=== PATIENT | female | born 1945 | race Caucasian/White ===

== ENCOUNTER → 2017-12-14 | Outpatient (CLI) | payer MEDICARE, OTHER ==
[~2017-12-14] MED LIST: ALEVE220 M1 PO; AMILORIDE HCL-1 EACH PO; CALCIUM 500+D1 EACH PO; ESTRADIOL1 MG PO; FISH OIL 1,0001 EAC2 PO; FUROSEMIDE40 MG PO; MELATONIN3 MG PO; MELOXICAM15 MG PO; MULTIVITAMINS1 EAC7 PO; POTASSIUM CHLO10 ME1 PO; SPIRIVA18 MCG INH; SYMBICORT 16010.2 GM IH; VENTOLIN HFA18 GM IH; XOPENEX HFA15 GM IH
--- NOTE | 2017-12-15 07:52 | Diagnostic Imaging Report ---
TECHNIQUE: Magnetic resonance imaging of the sacrum was performed WITHOUT injected contrast using standard departmental protocols. HISTORY: Low back pain COMPARISON: None. FINDINGS: Bone and bone marrow: No focal or infiltrative bone marrow replacing abnormality. No fracture or osteonecrosis. Sacroiliac joints: No significant arthropathy. Lumbar spine and sacral nerve roots: Lower lumbar disc herniations at L4-L5 and L5-S1 with endplate change at L5-S1. No mass effect on the exited nerve roots or proximal sciatic nerve. Soft tissues: Atrophy of the paraspinal musculature. IMPRESSION: Lower lumbar spondylosis. Refer to lumbar spine MRI report. Otherwise, unremarkable sacral MRI. Signed by: Dr. Mal Hall M.D. on 12/15/2017 7:48 AM
--- NOTE | 2017-12-16 08:20 | Diagnostic Imaging Report ---
Examination: MRI SPINE LUMBAR WITHOUT CONTRAST History: Severe low back pain radiating to the back of the bilateral lower extremities with associated numbness and weakness. Comparison studies: None Technique: Sagittal, coronal and axial T2 , sagittal T1 and STIR; axial spin density oblique. Findings: Number of lumbar vertebral bodies: Five. Alignment: Normal lordosis. Mild rightward curvature centered at L2-L3. Soft tissues: No T2 hyperintense inflammatory changes. Posterior paraspinal soft tissues and muscles: No abnormality. Lower thoracic cord: Normal in signal and morphology. The tip of the conus is at L1 . Cauda equina: No masses. No arachnoiditis. Vertebrae: No fractures, infection or neoplasm. Degenerative changes: L1-L2: Diffuse disc osteophyte complex and mild bilateral facet arthropathy result in mild bilateral neural foraminal narrowing. No canal stenosis. L2-L3: Degenerative fusion with diffuse disc osteophyte complex and mild bilateral facet arthropathy result in mild right and moderate left neural foraminal narrowing. No canal stenosis. Prior right laminectomy of L3. L3-L4: Diffuse disc osteophyte complex and mild bilateral facet arthropathy result in mild right and severe left neural foraminal narrowing. No canal stenosis. Prior right laminectomy of L4. L4-L5: Degenerative grade I anterolisthesis without pars defect. Diffuse disc bulge, severe bilateral facet arthropathy result in severe bilateral neural foraminal narrowing. Prior decompressive right laminectomy at L4. L5-S1: Bilateral decompressive laminectomies. Diffuse disc bulge and moderate bilateral facet arthropathy result in severe bilateral neural foraminal narrowing. Bilateral facet synovitis with moderate sized bilateral effusions. IMPRESSION: 1. Decompressive right laminectomies at L3 and L4 and bilateral laminectomies at L5-S1. 2. Degenerative changes multiple L2-L5 S1 with severe bilateral neural foraminal narrowing at L4-L5 and L5-S1. Degenerative grade I anterolisthesis without pars defect at L4-L5. 3. Bilateral facet synovitis at L5-S1. Signed by: Dr. Hayley Pineda M.D. on 12/16/2017 8:16 AM
== END | disposition home or self-care (01) ==
LOC: MRI 15:28
DX: M15.0 Primary generalized (osteo)arthritis (principal); M47.817 Spondylosis without myelopathy or radiculopathy, lumbosacral region; M47.816 Spondylosis without myelopathy or radiculopathy, lumbar region; M43.16 Spondylolisthesis, lumbar region
CPT/HCPCS: 72148; 72195

== ENCOUNTER 2018-02-08 12:49 | Inpatient (IN) | payer MEDICARE, OTHER ==
[~2018-02-08] VITALS: Ht 157.5 cm; Wt 84.8 kg
--- OUTSIDE RECORDS SUMMARY | 2018-02-08 17:06 | XMS REPORT ---
Author Author [facility] Address Unknown Phone Unavailable Care Team Providers Care Clinical Counselor Name Role Phone VIC EAST Unavailable Unavailable Problems This patient has no known problems. Allergies, Adverse Reactions, Alerts This patient has no known allergies or adverse reactions. Medications This patient has no known medications. Results Test Description Test Time Test Comments Text Results Atomic Results Result Comments MRI SACRUM WO [place] [address] Patient Name: VEENA LUEVANO MR #: [id number] : 1945 Age/Sex: 72/F Req # : [id number] Adm Physician: Ordered by: VIC EAST MD Report #: [id number] Location: MRI Room/Bed: Procedure: [id number] MRI/MRI SACRUM WO Exam Date: Exam Time: REPORT STATUS: Signed TECHNIQUE: Magnetic resonance imaging of the sacrum was performed WITHOUT injected contrast using standard departmental protocols. HISTORY: Low back pain COMPARISON: None. FINDINGS: Bone and bone marrow: No focal or infiltrative bone marrow replacing abnormality. No fracture or osteonecrosis. Sacroiliac joints: No significant arthropathy. Lumbar spine and sacral nerve roots: Lower lumbar disc herniations at L4-L5 and L5-S1 with endplate change at L5-S1. No mass effect on the exited nerve roots or proximal sciatic nerve. Soft tissues: Atrophy of the paraspinal musculature. IMPRESSION: Lower lumbar spondylosis. Refer to lumbar spine MRI report. Otherwise, unremarkable sacral MRI. Signed by: Dr. Beltran Ricardo M.D. on 12/15/2017 7 :48 AM Dictated By: BELTRAN RICARDO MD 7 Transcribed By: ENRIQUE on 12/15/17747 COPY TO: VIC EAST MD MRI SPINE LUMBAR WO [place] [address] Patient Name: VEENA LUEVANO MR #: [id number] : 1945 Age/Sex: 72/F Req #: [id number] Adm Physician: Ordered by: VIC EAST MD Report #: [id number] Location: MRI Room/Bed: Procedure: [id number] MRI/MRI SPINE LUMBAR WO Exam Date: Exam Time: REPORT STATUS: Signed Examination: MRI SPINE LUMBAR WITHOUT CONTRAST History: Severe low back pain radiating to the back of the bilateral lower extremities with associated numbness and weakness. Comparison studies: None Technique: Sagittal, coronal and axial T2 , sagittal T1 and STIR; axial spin density oblique. Findings: Number of lumbar vertebral bodies: Five. Alignment: Normal lordosis. Mild rightward curvature centered at L2-L3. Soft tissues: No T2 hyperintense inflammatory changes. Posterior paraspinal soft tissues and muscles: No abnormality. Lower thoracic cord: Normal in signal and morphology. The tip of the conus is at L1 . Cauda equina: No masses. No arachnoiditis. Vertebrae: No fractures, infection or neoplasm. Degenerative changes: L1-L2: Diffuse disc osteophyte complex and mild bilateral facet arthropathy result in mild bilateral neural foraminal narrowing. No canal stenosis. L2-L3: Degenerative fusion with diffuse disc osteophyte complex and mild bilateral facet arthropathy result in mild right and moderate left neural foraminal narrowing. No canal stenosis. Prior right laminectomy of L3. L3-L4: Diffuse disc osteophyte complex and mild bilateral facet arthropathy result in mild right and severe left neural foraminal narrowing. No canal stenosis. Prior right laminectomy of L4. L4 -L5: Degenerative grade I anterolisthesis without pars defect. Diffuse disc bulge, severe bilateral facet arthropathy result in severe bilateral neural foraminal narrowing. Prior decompressive right laminectomy at L4. L5-S1: Bilateral decompressive laminectomies. Diffuse disc bulge and moderate bilateral facet arthropathy result in severe bilateral neural foraminal narrowing. Bilateral facet synovitis with moderate sized bilateral effusions. IMPRESSION: 1. Decompressive right laminectomies at L3 and L4 and bilateral laminectomies at L5-S1. 2. Degenerative changes multiple L2- L5 S1 with severe bilateral neural foraminal narrowing at L4-L5 and L5-S1. Degenerative grade I anterolisthesis without pars defect at L4-L5. 3. Bilateral facet synovitis at L5-S1. Signed by: Dr. Hayley Pineda M.D. on 12/16/2017 8:16 AM Dictated By: HAYLEY MAXWELL MD 5 Transcribed By: ENRIQUE on 12/16/17815 COPY TO: VIC EAST MD
[2018-02-08 17:45] VITALS: BP 170/70
[2018-02-08] MEDS ORDERED: ULTRAM 50MG50 MG PO (18:20)
[2018-02-08] MEDS ORDERED: ESTRADIOL1 MG PO (18:20)
[2018-02-08] MEDS ORDERED: NORCO 10-325 T1 EACH PO (18:20)
[2018-02-08] MEDS ORDERED: POTASSIUM CHLO10 ME1 PO (18:20)
[2018-02-08] MEDS ORDERED: FUROSEMIDE40 MG PO (18:20)
[2018-02-08] MEDS ORDERED: RANITIDINE HCL150 MG PO (18:20)
[2018-02-08] MEDS ORDERED: OMEPRAZOLE40 MG PO (18:20)
[2018-02-08] MEDS ORDERED: SPIRONOLACTONE25 MG PO (18:20)
[2018-02-08] MEDS ORDERED: PREDNISONE5 MG PO (18:20)
[2018-02-08] MEDS ORDERED: AZELASTINE HCL6 ML (18:20)
[2018-02-08] MEDS ORDERED: XOPENEX HFA15 GM (18:20)
[2018-02-08] MEDS ORDERED: ASPIR 8181 MG PO (18:20)
[2018-02-08] MEDS ORDERED: TIZANIDINE HCL4 MG PO (18:20)
[2018-02-08] MEDS ORDERED: FISH OIL OMEGA1 EACH PO (18:20)
[2018-02-08] MEDS ORDERED: GABAPENTIN300 MG PO (18:20)
[2018-02-08 18:25] VITALS: BP 170/70
[2018-02-08 18:58] LABS: CLARITY,URINE SL CLOUDY (CLEAR); COLOR,URINE YELLOW (YELLOW)
[2018-02-08 18:59] LABS: BILIRUBIN,URINE NEGATIVE (NEGATIVE); KETONES,URINE NEGATIVE (NEGATIVE); LEUKOCYTE ESTERASE ,URINE TRACE (NEGATIVE); NITRITE,URINE NEGATIVE (NEGATIVE); PROTEIN,URINE DIPSTICK NEGATIVE (NEGATIVE); URINE UROBILINOGEN 0.2 mg/dL (0.2 - 1)
[2018-02-08] MEDS ORDERED: ALBUTEROL SULFATE HFA 8GM INHALATION AEROSOL INH PRN (19:00)
[2018-02-08] MEDS ORDERED: TRAMADOL HCL 50 MG TAB PO PRN (19:00)
[2018-02-08] MEDS ORDERED: LEVALBUTEROL TARTRATE IH SCH (19:00)
[2018-02-08 19:01] LABS: BASOPHILS # (AUTO) 0.1 (0.0-0.1); BASOPHILS % 0.3 % (0.0-1.0); HEMATOCRIT 42.6 % (34.2-44.1); HEMOGLOBIN 14.6 g/dL (12.0-16.0); LYMPHOCYTES # (AUTO) 0.7 (1.0-3.2); LYMPHOCYTES % 2.4 % (18.0-39.1); MEAN CORPUSCULAR HEMOGLOBIN 36.6 pg (28-32); MEAN CORPUSCULAR HGB CONC 34.3 g/dL (31-35); MEAN CORPUSCULAR VOLUME 106.8 fL (81-99); MONOCYTES # (AUTO) 1.2 (0.2-0.8); MONOCYTES % 4.1 % (4.4-11.3); NEUTROPHILS # (AUTO) 26.8 (2.1-6.9); NEUTROPHILS % 92.1 % (38.7-80.0); PLATELET COUNT 159 x10e3/uL (140-360); RED BLOOD COUNT 3.99 x10e6/uL (3.6-5.1); RED CELL DISTRIBUTION WIDTH 14.8 % (11.7-14.4)
[2018-02-08 19:08] LABS: BACTERIA,URINE MODERATE /HPF; EPITHELIAL CELLS,URINE MODERATE /LPF; MUCUS,URINE FEW (RARE); RBC,URINE 0-5 /HPF (0-5)
[2018-02-08 19:13] LABS: ANION GAP 15.6 mmol/L (8-16); CALCIUM 9.1 mg/dL (8.4-10.2); CREATININE, SERUM 1.52 mg/dL (0.57-1.11); POTASSIUM 3.6 mmol/L (3.5-5.1)
[2018-02-08] MEDS ORDERED: HYDROMORPHONE 2MG/ML INJ IV PRN (19:15)
[2018-02-08] MEDS ORDERED: SODIUM CHLORIDE 0.9% 250ML 250 ML ONE (19:59)
[2018-02-08 20:00] VITALS: BP 160/90
[2018-02-08] MEDS ORDERED: LEVALBUTEROL 15 GM AERO IH PRN (20:00)
[2018-02-08] MEDS: VANCOMYCIN 1GM/NS 250 ML 250 ML IV SCH (20:12)
[2018-02-08] MEDS: CEFEPIME HCL 1 GM VIAL IV SCH (20:12)
[2018-02-08] MEDS: ENOXAPARIN 30 MG/0.3 ML SYR SC SCH (20:13)
[2018-02-08] MEDS: GABAPENTIN 300 MG CAP PO SCH (20:13)
[2018-02-08] MEDS ORDERED: SODIUM CHLORIDE FLUSH 10 ML SYR INJ PRN (20:15)
[2018-02-08 20:51] LABS: LYMPHOCYTES % (MANUAL) 2 % (19-48); MONOCYTES % (MANUAL) 3 % (3.4-9.0); NEUTROPHILS % (MANUAL) 95 % (40-74); PLATELET ESTIMATE ADEQUATE; PLATELET MORPHOLOGY COMMENT NORMAL; RBC MORPHOLOGY COMMENT NORMAL
[2018-02-08] MEDS ORDERED: MELATONIN 3 MG TAB PO SCH (21:00)
[2018-02-08] MEDS: AZELASTINE HCL(OPTH) 6 ML BOTTLE OP SCH (21:00)
[2018-02-08] MEDS: MELATONIN 4 MG PO SCH (21:00)
[2018-02-08] MEDS: TIZANIDINE HCL 4 MG TAB PO PRN (22:00)
[2018-02-09] VITALS: BP 140/78
[2018-02-09 04:00] VITALS: BP 120/78
[2018-02-09] MEDS: TIOTROPIUM 18 MCG INH POWDER INH SCH (06:00)
[2018-02-09] MEDS: BUDESONIDE/FORMOTEROL 160/4.5MCG INHALER INH SCH ×2 (07:00→19:45)
[2018-02-09] MEDS ORDERED: [UNRECOGNIZED DRUG - OTHER] PO SCH (09:00)
[2018-02-09] MEDS ORDERED: NON-FORMULARY MEDICATION (Ranitidine Hcl 150 MG) PO SCH (09:00)
[2018-02-09] MEDS: ASPIRIN 81 MG CHEW TAB PO SCH (09:00)
[2018-02-09] MEDS ORDERED: AMILORIDE PO SCH (09:00)
[2018-02-09] MEDS ORDERED: HYDROCHLOROTHIAZIDE PO SCH (09:00)
[2018-02-09] MEDS ORDERED: PREDNISONE 5 MG TAB PO SCH (09:00)
[2018-02-09] MEDS: AZELASTINE HCL(OPTH) 6 ML BOTTLE OP SCH ×2 (09:00→20:03)
[2018-02-09] MEDS: OMEGA 3 POLYUNSAT FATTY ACIDS 1000 MG SOFTGEL PO SCH (09:00)
[2018-02-09] MEDS ORDERED: PREDNISONE 5 MG/5 ML SOLN PO SCH (09:00)
[2018-02-09] MEDS ORDERED: NON-FORMULARY MEDICATION (Omega-3/Dha/Epa/Fish Oil (Fish Oil Omega-3 Softgel) 1 TAB) PO SCH (09:00)
[2018-02-09] MEDS ORDERED: FUROSEMIDE 40 MG TAB PO SCH (09:00)
[2018-02-09] MEDS: HYDROCHLOROTHIAZIDE 25 MG TAB PO SCH (09:24)
[2018-02-09] MEDS: CEFEPIME HCL 1 GM VIAL IV SCH ×2 (09:24→19:58)
[2018-02-09] MEDS: SPIRONOLACTONE 25 MG TAB PO SCH (09:24)
[2018-02-09] MEDS: POTASSIUM CHLORIDE 10 MEQ TABCR PO SCH (09:25)
[2018-02-09] MEDS: MULTIVITAMINS/MINERALS TAB PO SCH (09:25)
[2018-02-09] MEDS: FAMOTIDINE 20 MG TAB PO SCH (09:25)
[2018-02-09] MEDS: ESTRADIOL 1 MG TAB PO SCH (09:25)
[2018-02-09] MEDS: ENOXAPARIN 30 MG/0.3 ML SYR SC SCH ×2 (09:26→19:59)
[2018-02-09] MEDS: AMILORIDE HCL 5 MG TAB PO SCH (09:26)
[2018-02-09] MEDS: CALCIUM CARBONATE 500 MG CHEWABLE TABS PO SCH ×2 (09:26→17:41)
[2018-02-09] MEDS: GABAPENTIN 300 MG CAP PO SCH ×3 (09:26→19:59)
[2018-02-09] MEDS: PANTOPRAZOLE SOD 40 MG TABEC PO SCH (09:26)
[2018-02-09 12:24] VITALS: BP 124/82
[2018-02-09 15:58] VITALS: BP 142/80
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
[2018-02-09] MEDS: VANCOMYCIN 1GM/NS 250 ML 250 ML IV SCH (19:58)
[2018-02-09] MEDS: FUROSEMIDE INJ 10 MG/ML 4 ML VIAL IV SCH (19:58)
[2018-02-09 20:00] VITALS: BP 142/80
[2018-02-09] MEDS: MELATONIN 4 MG PO SCH (21:00)
[2018-02-09] MEDS: TIZANIDINE HCL 4 MG TAB PO PRN (23:48)
[2018-02-10] VITALS (8 sets, daily range): BP systolic 126–157; BP diastolic 64–82
[2018-02-10] MEDS: TIOTROPIUM 18 MCG INH POWDER INH SCH (06:00)
[2018-02-10 06:48] LABS: BASOPHILS % 0.2 % (0.0-1.0); EOSINOPHILS % 0.2 % (0.0-6.0); HEMATOCRIT 36.8 % (34.2-44.1); HEMOGLOBIN 12.5 g/dL (12.0-16.0); LYMPHOCYTES # (AUTO) 1.1 (1.0-3.2); LYMPHOCYTES % 6.5 % (18.0-39.1); MEAN CORPUSCULAR VOLUME 106.1 fL (81-99); MONOCYTES # (AUTO) 1.3 (0.2-0.8); MONOCYTES % 7.6 % (4.4-11.3); NEUTROPHILS # (AUTO) 14.2 (2.1-6.9); NEUTROPHILS % 84.3 % (38.7-80.0); PLATELET COUNT 164 x10e3/uL (140-360); RED BLOOD COUNT 3.47 x10e6/uL (3.6-5.1); RED CELL DISTRIBUTION WIDTH 14.9 % (11.7-14.4)
[2018-02-10] MEDS: BUDESONIDE/FORMOTEROL 160/4.5MCG INHALER INH SCH ×2 (07:00→20:51)
[2018-02-10 07:09] LABS: ANION GAP 11.2 mmol/L (8-16); CALCIUM 8.7 mg/dL (8.4-10.2); CREATININE, SERUM 0.98 mg/dL (0.57-1.11); POTASSIUM 3.2 mmol/L (3.5-5.1)
[2018-02-10] MEDS: ASPIRIN 81 MG CHEW TAB PO SCH (09:00)
[2018-02-10] MEDS: OMEGA 3 POLYUNSAT FATTY ACIDS 1000 MG SOFTGEL PO SCH (09:00)
[2018-02-10] MEDS: AZELASTINE HCL(OPTH) 6 ML BOTTLE OP SCH ×2 (09:00→20:38)
[2018-02-10] MEDS: GABAPENTIN 300 MG CAP PO SCH ×3 (09:46→20:39)
[2018-02-10] MEDS: ESTRADIOL 1 MG TAB PO SCH (09:46)
[2018-02-10] MEDS: CEFEPIME HCL 1 GM VIAL IV SCH ×2 (09:46→20:38)
[2018-02-10] MEDS: PANTOPRAZOLE SOD 40 MG TABEC PO SCH (09:46)
[2018-02-10] MEDS: FAMOTIDINE 20 MG TAB PO SCH (09:46)
[2018-02-10] MEDS: SPIRONOLACTONE 25 MG TAB PO SCH (09:46)
[2018-02-10] MEDS: MULTIVITAMINS/MINERALS TAB PO SCH (09:46)
[2018-02-10] MEDS: PREDNISONE 5 MG/5 ML SOLN PO SCH (09:46)
[2018-02-10] MEDS: CALCIUM CARBONATE 500 MG CHEWABLE TABS PO SCH ×2 (09:46→16:57)
[2018-02-10] MEDS: FUROSEMIDE INJ 10 MG/ML 4 ML VIAL IV SCH ×2 (09:46→20:38)
[2018-02-10] MEDS: HYDROCHLOROTHIAZIDE 25 MG TAB PO SCH (09:46)
[2018-02-10] MEDS: AMILORIDE HCL 5 MG TAB PO SCH (09:46)
[2018-02-10] MEDS: POTASSIUM CHLORIDE 10 MEQ TABCR PO SCH (09:46)
[2018-02-10] MEDS: ENOXAPARIN 30 MG/0.3 ML SYR SC SCH ×2 (09:46→20:39)
[2018-02-10 10:57] LABS: CREATININE,URINE RANDOM 28.79 mg/dL (47-110); SODIUM,URINE 89 mmol/L
[2018-02-10 11:00] LABS: TOTAL PROTEIN, URINE < 6.8 mg/dL (1-14)
[2018-02-10] MEDS: MUPIROCIN 2% OINT 22 GM TUBE TOP SCH (12:07)
[2018-02-10] MEDS: HYDROCODONE/APAP 10MG-325MG TAB PO PRN (15:11)
--- NOTE | 2018-02-10 16:19 | Diagnostic Imaging Report ---
EXAM: Renal Ultrasound INDICATION: \S\miracle vs ckd COMPARISON: None TECHNIQUE: Transverse and longitudinal images of the kidneys and bladder were obtained. FINDINGS: Right Kidney: Size: 9.1 cm Echogenicity: Normal Parenchymal thickness: Normal Collecting system: No hydronephrosis Stones: None Cyst/Mass: None Left Kidney: Size: 9.8 cm Echogenicity: Normal Parenchymal thickness: Normal Collecting system: No hydronephrosis Stones: None Cyst/Mass: None Bladder: Not fully distended, limiting evaluation. IMPRESSION: Unremarkable renal ultrasound exam. Signed by: Dr. Corey Rojo MD on 02/10/2018 4:15 PM
[2018-02-10] MEDS ORDERED: POTASSIUM CHLORIDE 20 MEQ TAB CR PO ONE (17:51)
[2018-02-10] MEDS: MELATONIN 4 MG PO SCH (20:38)
[2018-02-10] MEDS: TIZANIDINE HCL 4 MG TAB PO PRN (20:42)
[2018-02-10] MEDS: VANCOMYCIN 1GM/NS 250 ML 250 ML IV SCH (22:00)
[2018-02-11 00:14] VITALS: BP 152/88
[2018-02-11] MEDS: TIOTROPIUM 18 MCG INH POWDER INH SCH (06:00)
[2018-02-11 06:30] VITALS: BP 140/89
[2018-02-11 06:37] LABS: HEMOGLOBIN 12.9 g/dL (12.0-16.0); RED BLOOD COUNT 3.58 x10e6/uL (3.6-5.1)
[2018-02-11 06:38] LABS: HEMATOCRIT 37.2 % (34.2-44.1); MEAN CORPUSCULAR HGB CONC 34.7 g/dL (31-35); MEAN CORPUSCULAR VOLUME 103.9 fL (81-99); NEUTROPHILS % 8.7 % (38.7-80.0); PLATELET COUNT 198 x10e3/uL (140-360); RED CELL DISTRIBUTION WIDTH 56.6 % (11.7-14.4)
[2018-02-11 06:39] LABS: EOSINOPHILS % 0.1 % (0.0-6.0); LYMPHOCYTES % 1.5 % (18.0-39.1); MONOCYTES % 1.3 % (4.4-11.3)
[2018-02-11 06:40] LABS: EOSINOPHILS # (AUTO) 0.1 (0.0-0.4); LYMPHOCYTES # (AUTO) 1.5 (1.0-3.2); MONOCYTES # (AUTO) 1.3 (0.2-0.8); NEUTROPHILS # (AUTO) 8.7 (2.1-6.9)
[2018-02-11 06:55] LABS: ANION GAP 10.7 mmol/L (8-16); BLOOD UREA NITROGEN 35 mg/dL (7-26); BUN/CREATININE RATIO 45 (6-25); CALCIUM 8.6 mg/dL (8.4-10.2); CARBON DIOXIDE 24 mmol/L (22-29); CHLORIDE 103 mmol/L (98-107); CREATININE, SERUM 0.78 mg/dL (0.57-1.11); EST GLOMERULAR FILTRATION RATE > 60 ML/MIN (60-); GLUCOSE 82 mg/dL (74-118); POTASSIUM 3.7 mmol/L (3.5-5.1); SODIUM 134 mmol/L (136-145)
[2018-02-11] MEDS: BUDESONIDE/FORMOTEROL 160/4.5MCG INHALER INH SCH (07:00)
[2018-02-11 07:17] VITALS: BP 140/89
[2018-02-11 07:30] VITALS: BP 140/89
[2018-02-11] MEDS: ASPIRIN 81 MG CHEW TAB PO SCH (08:20)
[2018-02-11] MEDS: AZELASTINE HCL(OPTH) 6 ML BOTTLE OP SCH (08:20)
[2018-02-11] MEDS: OMEGA 3 POLYUNSAT FATTY ACIDS 1000 MG SOFTGEL PO SCH (08:20)
[2018-02-11] MEDS: FAMOTIDINE 20 MG TAB PO SCH (09:10)
[2018-02-11] MEDS: CEFEPIME HCL 1 GM VIAL IV SCH (09:10)
[2018-02-11] MEDS: GABAPENTIN 300 MG CAP PO SCH (09:10)
[2018-02-11] MEDS: PANTOPRAZOLE SOD 40 MG TABEC PO SCH (09:10)
[2018-02-11] MEDS: ENOXAPARIN 30 MG/0.3 ML SYR SC SCH (09:10)
[2018-02-11] MEDS: HYDROCHLOROTHIAZIDE 25 MG TAB PO SCH (09:10)
[2018-02-11] MEDS: MULTIVITAMINS/MINERALS TAB PO SCH (09:10)
[2018-02-11] MEDS: AMILORIDE HCL 5 MG TAB PO SCH (09:10)
[2018-02-11] MEDS: ESTRADIOL 1 MG TAB PO SCH (09:10)
[2018-02-11] MEDS: CALCIUM CARBONATE 500 MG CHEWABLE TABS PO SCH (09:10)
[2018-02-11] MEDS: PREDNISONE 5 MG/5 ML SOLN PO SCH (09:10)
[2018-02-11] MEDS: SPIRONOLACTONE 25 MG TAB PO SCH (09:10)
[2018-02-11] MEDS: POTASSIUM CHLORIDE 10 MEQ TABCR PO SCH (09:10)
[2018-02-11] MEDS: FUROSEMIDE INJ 10 MG/ML 4 ML VIAL IV SCH (09:10)
[2018-02-11] MEDS: MUPIROCIN 2% OINT 22 GM TUBE TOP SCH (09:24)
[2018-02-11] MEDS: HYDROCODONE/APAP 10MG-325MG TAB PO PRN (10:30)
[2018-02-11 12:25] VITALS: BP 142/86
== END 2018-02-11 13:03 | DRG 602 ==
LOC: MED/SURG3 16:59
DX: L03.116 Cellulitis of left lower limb (principal); N17.0 Acute kidney failure with tubular necrosis; L97.829 Non-pressure chronic ulcer of other part of left lower leg with unspecified severity; L97.819 Non-pressure chronic ulcer of other part of right lower leg with unspecified severity; L03.115 Cellulitis of right lower limb; I12.9 Hypertensive chronic kidney disease with stage 1 through stage 4 chronic kidney disease, or unspecified chronic kidney disease; N18.3 Chronic kidney disease, stage 3 (moderate); E87.6 Hypokalemia; G89.29 Other chronic pain; E66.9 Obesity, unspecified; Z68.34 Body mass index [BMI] 34.0-34.9, adult; N14.0 Analgesic nephropathy
CPT/HCPCS: 36415; 76770; 80048; 80202; 81001; 82570; 84156; 84300; 85025; 87040; 94640; 96360; J0692; J1650; J1940; J3370; J7050

== ENCOUNTER 2018-03-25 19:03 | Inpatient (IN) | payer MEDICARE, OTHER ==
[~2018-03-25] VITALS: Ht 157.5 cm; Wt 84.8 kg
[~2018-03-25 19:03] MED LIST changes: +ASPIR 8181 MG PO; +AZELASTINE HCL6 ML; +FISH OIL OMEGA1 EACH PO; +GABAPENTIN300 MG PO; +NORCO 10-325 T1 EACH PO; +OMEPRAZOLE40 MG PO; +PREDNISONE5 MG PO; +RANITIDINE HCL150 MG PO; +SPIRONOLACTONE25 MG PO; +TIZANIDINE HCL4 MG PO; +ULTRAM 50MG50 MG PO; +XOPENEX HFA15 GM
[2018-03-25] MEDS ORDERED: MORPHINE SULFATE 2 MG/ML SYR IV STA (19:20)
[2018-03-25] MEDS ORDERED: ONDANSETRON HCL INJ 2 MG/ML VIAL IV STA (19:20)
[2018-03-25] MEDS ORDERED: SODIUM CHLORIDE 0.9% 1000ML 1,000 ML IV STA ×2 (19:20→20:22)
[2018-03-25] MEDS ORDERED: ASPIRIN 81 MG CHEW TAB PO ONE (19:30)
[2018-03-25] MEDS ORDERED: ONDANSETRON HCL INJ 2 MG/ML VIAL IV PRN (19:45)
[2018-03-25 19:47] LABS: BASOPHILS # (AUTO) 0.1 (0.0-0.1); BASOPHILS % 0.3 % (0.0-1.0); EOSINOPHILS % 0.1 % (0.0-6.0); HEMATOCRIT 38.2 % (34.2-44.1); HEMOGLOBIN 13.3 g/dL (12.0-16.0); LYMPHOCYTES # (AUTO) 1.9 (1.0-3.2); LYMPHOCYTES % 11.4 % (18.0-39.1); MEAN CORPUSCULAR HEMOGLOBIN 35.7 pg (28-32); MEAN CORPUSCULAR HGB CONC 34.8 g/dL (31-35); MEAN CORPUSCULAR VOLUME 102.4 fL (81-99); MONOCYTES # (AUTO) 2.3 (0.2-0.8); MONOCYTES % 14.2 % (4.4-11.3); NEUTROPHILS # (AUTO) 11.9 (2.1-6.9); NEUTROPHILS % 72.4 % (38.7-80.0); PLATELET COUNT 165 x10e3/uL (140-360); RED BLOOD COUNT 3.73 x10e6/uL (3.6-5.1); RED CELL DISTRIBUTION WIDTH 16.7 % (11.7-14.4)
[2018-03-25 19:56] LABS: INR 1.27; PROTHROMBIN TIME 14.9 seconds (11.9-14.5)
[2018-03-25 19:57] LABS: PARTIAL THROMBOPLASTIN TIME 30.6 seconds (23.8-35.5)
[2018-03-25 19:58] LABS: BILIRUBIN,URINE NEGATIVE (NEGATIVE); CLARITY,URINE SL CLOUDY (CLEAR); COLOR,URINE STRAW (YELLOW); KETONES,URINE NEGATIVE (NEGATIVE); LEUKOCYTE ESTERASE ,URINE NEGATIVE (NEGATIVE); NITRITE,URINE NEGATIVE (NEGATIVE); PROTEIN,URINE DIPSTICK NEGATIVE (NEGATIVE); URINE UROBILINOGEN 0.2 mg/dL (0.2 - 1)
[2018-03-25] MEDS ORDERED: VOLTAREN100 GM TOP (19:59)
[2018-03-25 20:07] LABS: ALBUMIN 2.2 g/dL (3.5-5.0); ALBUMIN/GLOBULIN RATIO 0.6 (0.8-2.0); ANION GAP 15.6 mmol/L (8-16); CREATININE, SERUM 1.45 mg/dL (0.57-1.11); MAGNESIUM 2.1 MG/DL (1.3-2.1); POTASSIUM 3.6 mmol/L (3.5-5.1)
[2018-03-25 20:08] LABS: BACTERIA,URINE MODERATE /HPF; EPITHELIAL CELLS,URINE MANY /LPF; MUCUS,URINE FEW (RARE); RENAL EPITHELIAL CELLS,URINE RARE; TRANSITIONAL EPI CELLS,URINE FEW
[2018-03-25 20:16] LABS: CREATINE KINASE MB 2.6 ng/mL (0-5.0)
[2018-03-25 20:18] LABS: B-TYPE NATRIURETIC PEPTIDE2 136.9 pg/mL (0-100)
[2018-03-25] MEDS: SODIUM CHLORIDE 0.9% 1000ML 1,000 ML IV SCH ×2 (20:20→20:44)
[2018-03-25] MEDS: VANCOMYCIN HCL IV SCH (21:20)
[2018-03-25] MEDS: SODIUM CHLORIDE 0.9% IV SCH (21:20)
[2018-03-25] MEDS: PIPERACILLIN/TAZO 2.25 GM 50 ML IV SCH (21:27)
[2018-03-25 22:00] VITALS: BP 130/82
[2018-03-25] MEDS ORDERED: PIPER-TAZ 3.375 GM 50 ML IV SCH (22:00)
[2018-03-25 22:14] VITALS: BP 130/70
[2018-03-25 23:56] VITALS: BP 130/70
--- NOTE | 2018-03-26 02:57 | Diagnostic Imaging Report ---
EXAMINATION: CHEST SINGLE (PORTABLE) INDICATION: PICC line placement COMPARISON: None FINDINGS: TUBES and LINES: Right upper extremity PICC line is visualized with tip at the level of the atrial caval junction LUNGS: Lungs are not well inflated. Lungs are clear. There is mild prominence of the central pulmonary vasculature, consistent with pulmonary venous congestion. PLEURA: No pleural effusion or pneumothorax. HEART AND MEDIASTINUM: The cardiomediastinal silhouette is unremarkable. There are atherosclerotic calcifications within the aorta. BONES AND SOFT TISSUES: No acute osseous lesion. Right shoulder degenerative changes and narrowing of the acromiohumeral interface. Soft tissues are unremarkable. UPPER ABDOMEN: No free air under the diaphragm. IMPRESSION: 1. No acute thoracic abnormality. 2. Right upper extremity PICC line in good position. Signed by: Dr. Piter Marie M.D. on 03/26/2018 2:54 AM
[2018-03-26] MEDS: MORPHINE SULFATE 2 MG/ML SYR IV PRN ×2 (03:57→12:48)
[2018-03-26 05:21] VITALS: BP 153/90
[2018-03-26 05:37] LABS: BASOPHILS # (AUTO) 0.1 (0.0-0.1); BASOPHILS % 0.4 % (0.0-1.0); EOSINOPHILS % 0.2 % (0.0-6.0); HEMATOCRIT 32.8 % (34.2-44.1); LYMPHOCYTES # (AUTO) 2.9 (1.0-3.2); LYMPHOCYTES % 17.7 % (18.0-39.1); MEAN CORPUSCULAR HEMOGLOBIN 35.4 pg (28-32); MEAN CORPUSCULAR HGB CONC 33.5 g/dL (31-35); MEAN CORPUSCULAR VOLUME 105.5 fL (81-99); MONOCYTES # (AUTO) 2.4 (0.2-0.8); MONOCYTES % 14.2 % (4.4-11.3); NEUTROPHILS % 66.1 % (38.7-80.0); PLATELET COUNT 163 x10e3/uL (140-360); RED BLOOD COUNT 3.11 x10e6/uL (3.6-5.1)
[2018-03-26 06:16] LABS: ALBUMIN 1.8 g/dL (3.5-5.0); ANION GAP 10.2 mmol/L (8-16); CALCIUM 8.3 mg/dL (8.4-10.2); CREATININE, SERUM 1.2 mg/dL (0.57-1.11); POTASSIUM 3.2 mmol/L (3.5-5.1)
[2018-03-26 06:30] LABS: ALBUMIN/GLOBULIN RATIO 0.7 (0.8-2.0)
[2018-03-26] MEDS: PIPERACILLIN/TAZO 2.25 GM 50 ML IV SCH ×2 (07:05→14:00)
[2018-03-26 07:40] LABS: LYMPHOCYTES % (MANUAL) 12 % (19-48); MONOCYTES % (MANUAL) 8 % (3.4-9.0); NEUTROPHILS % (MANUAL) 76 % (40-74)
[2018-03-26 07:41] LABS: ANISOCYTOSIS MODERATE; HYPOCHROMASIA SLIGHT; PLATELET ESTIMATE ADEQUATE; PLATELET MORPHOLOGY COMMENT NORMAL; POIKILOCYTOSIS SLIGHT; RBC MORPHOLOGY COMMENT ABNORMAL; TARGET CELLS FEW
[2018-03-26 07:42] LABS: SMUDGE CELLS FEW
[2018-03-26 08:00] VITALS: BP 130/72
[2018-03-26] MEDS: VANCOMYCIN HCL IV SCH ×2 (08:00→20:20)
[2018-03-26] MEDS: SODIUM CHLORIDE 0.9% IV SCH ×2 (08:00→20:20)
[2018-03-26] MEDS ORDERED: TRAMADOL HCL 50 MG TAB PO PRN ×2 (08:00→11:45)
[2018-03-26 08:14] VITALS: BP 130/72
[2018-03-26] MEDS: SODIUM CHLORIDE 0.9% 1000ML 1,000 ML IV SCH ×2 (08:57→20:41)
[2018-03-26] MEDS ORDERED: ALBUTEROL SULFATE HFA 8GM INHALATION AEROSOL INH PRN (11:45)
[2018-03-26] MEDS ORDERED: LEVALBUTEROL TARTRATE IH SCH (11:45)
[2018-03-26] MEDS ORDERED: TIZANIDINE HCL 4 MG TAB PO PRN (11:45)
[2018-03-26] MEDS ORDERED: HYDROCODONE/APAP 10MG-325MG TAB PO PRN (11:45)
[2018-03-26] MEDS ORDERED: IBUPROFEN 600 MG TAB PO PRN (11:45)
[2018-03-26] MEDS ORDERED: IBUPROFEN 200 MG TAB PO PRN (12:45)
[2018-03-26] MEDS ORDERED: LEVALBUTEROL 15 GM AERO IH PRN (13:00)
[2018-03-26] MEDS: GABAPENTIN 300 MG CAP PO SCH ×2 (14:19→19:51)
[2018-03-26] MEDS ORDERED: FUROSEMIDE 40 MG TAB PO SCH (17:00)
[2018-03-26] MEDS ORDERED: AZELASTINE HCL(OPTH) 6 ML BOTTLE OP SCH (17:00)
[2018-03-26] MEDS ORDERED: CALCIUM CARBONATE 500 MG CHEWABLE TABS PO SCH (17:00)
--- NOTE | 2018-03-26 18:49 | Consultation ---
DATE OF CONSULTATION: INFECTIOUS DISEASE CONSULTATION REASON FOR CONSULTATION: Cellulitis of the arm. HISTORY OF PRESENT ILLNESS: This patient is a very pleasant 72-year-old female who has a history of dermatitis, history of chronic kidney disease, history of hypertension, multiple wound infections. Her skin is thin and fragile. She has seen several dermatologists. Patient has recurrent and multiple admissions for cellulitis. The patient is coming now with redness and swelling of her left upper extremity. She is telling me she was recently in the hospital the last month for different sites of cellulitis, and she was discharged with oral antibiotic, but she is coming back with redness and swelling over her left arm. The patient is currently lying in bed comfortably. When she first came, her white count was 16.5, hemoglobin 11. Her sodium 139, potassium 3.2, creatinine 1.20. It was 1.45. PHYSICAL EXAMINATION: GENERAL: She is currently alert, oriented, does not seem to be in acute distress. VITALS: Stable. Currently afebrile. HEENT: Normocephalic. She does not appear icteric. NECK: Supple. CHEST: Clear bilaterally. HEART: S1/S2. No S3, no S4. No murmur. ABDOMEN: Soft. THE ARM: There is erythema. There is edema. There is some hematoma superficial noted on the arm. IMPRESSION: Cellulitis left upper extremity in a patient who easily gets skin abrasion and infection. Agree with vancomycin, agree with Zosyn. Will adjust for kidney function. Will follow vancomycin trough. Wound care is ordered. Further recommendations to follow. Job#: [id number] ZAYRA
[2018-03-26] MEDS ORDERED: BUDESONIDE/FORMOTEROL 160/4.5MCG INHALER INH SCH (19:00)
[2018-03-26] MEDS ORDERED: MELATONIN 3 MG TAB PO SCH (21:00)
[2018-03-26] MEDS ORDERED: MELATONIN 5 MG TABLET PO SCH (21:00)
[2018-03-27] MEDS ORDERED: PANTOPRAZOLE SOD 40 MG TABEC PO SCH (07:30)
[2018-03-27] MEDS ORDERED: FAMOTIDINE 20 MG TAB PO SCH (07:30)
[2018-03-27] MEDS ORDERED: HYDROCHLOROTHIAZIDE 25 MG TAB PO SCH (09:00)
[2018-03-27] MEDS ORDERED: [UNRECOGNIZED DRUG - OTHER] PO SCH (09:00)
[2018-03-27] MEDS ORDERED: OMEGA 3 POLYUNSAT FATTY ACIDS 1000 MG SOFTGEL PO SCH (09:00)
[2018-03-27] MEDS ORDERED: HYDROCHLOROTHIAZIDE PO SCH (09:00)
[2018-03-27] MEDS ORDERED: PREDNISONE 5 MG TAB PO SCH (09:00)
[2018-03-27] MEDS ORDERED: MULTIVITAMINS/MINERALS TAB PO SCH (09:00)
[2018-03-27] MEDS ORDERED: NON-FORMULARY MEDICATION (Omega-3/Dha/Epa/Fish Oil (Fish Oil Omega-3 Softgel) 1 TAB) PO SCH (09:00)
[2018-03-27] MEDS ORDERED: NON-FORMULARY MEDICATION (Ranitidine Hcl 150 MG) PO SCH (09:00)
[2018-03-27] MEDS ORDERED: SPIRONOLACTONE 25 MG TAB PO SCH (09:00)
[2018-03-27] MEDS ORDERED: ESTRADIOL 1 MG TAB PO SCH (09:00)
[2018-03-27] MEDS ORDERED: POTASSIUM CHLORIDE 20 MEQ TAB CR PO SCH (09:00)
[2018-03-27] MEDS ORDERED: ASPIRIN 81 MG CHEW TAB PO SCH (09:00)
[2018-03-27] MEDS ORDERED: AMILORIDE HCL 5 MG TAB PO SCH (09:00)
[2018-03-27] MEDS ORDERED: PREDNISONE 5 MG/5 ML SOLN PO SCH (09:00)
[2018-03-27] MEDS ORDERED: POTASSIUM CHLORIDE 10 MEQ TABCR PO SCH (09:00)
[2018-03-27] MEDS ORDERED: AMILORIDE PO SCH (09:00)
== END 2018-03-26 21:11 | DRG 603 ==
LOC: ER 19:03 → ERHOLD 21:15 → MED/SURG3 22:01
PROC: 02HV33Z Insertion of Infusion Device into Superior Vena Cava, Percutaneous Approach (ICD-10-PCS; principal; 2018-03-26)
DX: L03.114 Cellulitis of left upper limb (principal); I12.9 Hypertensive chronic kidney disease with stage 1 through stage 4 chronic kidney disease, or unspecified chronic kidney disease; N18.9 Chronic kidney disease, unspecified; I87.2 Venous insufficiency (chronic) (peripheral); Z79.4 Long term (current) use of insulin
CPT/HCPCS: 36415; 36569; 71045; 80053; 81001; 82550; 82553; 83605; 83735; 83880; 84484; 85025; 85610; 85730; 87040; 87086; 93971; 94640; 99284; J2270; J2405; J2543; J3370; J7030

== ENCOUNTER 2018-05-03 11:38 | Inpatient (IN) | payer MEDICARE, OTHER ==
[~2018-05-03] VITALS: Ht 157.5 cm; Wt 89.0 kg
[~2018-05-03 11:38] MED LIST changes: +VOLTAREN100 GM TOP
[2018-05-03] MEDS ORDERED: CLINDAMYCIN 600MG/D5W 50ML 50 ML IV ONE ×2 (12:00→16:00)
[2018-05-03 12:40] LABS: BASOPHILS # (AUTO) 0.1 (0.0-0.1); BASOPHILS % 0.4 % (0.0-1.0); EOSINOPHILS % 0.3 % (0.0-6.0); HEMATOCRIT 34.6 % (34.2-44.1); LYMPHOCYTES # (AUTO) 1.1 (1.0-3.2); LYMPHOCYTES % 7.9 % (18.0-39.1); MEAN CORPUSCULAR HEMOGLOBIN 34.4 pg (28-32); MEAN CORPUSCULAR HGB CONC 34.7 g/dL (31-35); MEAN CORPUSCULAR VOLUME 99.1 fL (81-99); MONOCYTES # (AUTO) 1.8 (0.2-0.8); MONOCYTES % 12.8 % (4.4-11.3); NEUTROPHILS # (AUTO) 10.8 (2.1-6.9); NEUTROPHILS % 77.4 % (38.7-80.0); PLATELET COUNT 161 x10e3/uL (140-360); RED BLOOD COUNT 3.49 x10e6/uL (3.6-5.1)
[2018-05-03 12:50] LABS: INR 1.33; PROTHROMBIN TIME 15.5 seconds (11.9-14.5)
[2018-05-03 12:57] LABS: ALBUMIN 2.1 g/dL (3.5-5.0); ALBUMIN/GLOBULIN RATIO 0.6 (0.8-2.0); ANION GAP 15.3 mmol/L (8-16); CREATININE, SERUM 1.22 mg/dL (0.57-1.11); POTASSIUM 4.3 mmol/L (3.5-5.1)
[2018-05-03] MEDS ORDERED: SODIUM CHLORIDE FLUSH 10 ML SYR INJ PRN (14:45)
[2018-05-03] MEDS: VANCOMYCIN 1GM/NS 250 ML 250 ML IV SCH (16:07)
--- NOTE | 2018-05-03 16:46 | Consultation ---
DATE OF CONSULTATION: May 03, 2018 REASON FOR CONSULTATION: Cellulitis of the left upper extremity. This patient is a very pleasant 72-year-old female with history of arthritis on prednisone 4 mg daily, history of multiple bruising, history of cellulitis of the arm back in March. At that time, she was in [place]. The patient comes in with redness and swelling of her left upper extremity, no trauma. Patient's arm is extremely edematous. There is bullous lesion noted on the dorsal aspect of her hand. The patient does have history of chronic kidney disease, history of COPD, chronic back pain and multiple admissions to the hospital. She has been in LTAC before. Patient comes in complaining of redness and swelling of her left upper extremity as mentioned above for a few days, not feeling well with pain. PAST MEDICAL HISTORY: COPD, chronic kidney disease stage 3, multiple extremity cellulitis, multiple skin tears. SOCIAL HISTORY: There is no smoking, drug abuse or alcohol abuse. FAMILY HISTORY: Hypertension. REVIEW OF SYSTEMS: HEENT: Negative. PULMONARY: CARDIAC: Negative. Review of other systems otherwise unremarkable. PHYSICAL EXAMINATION GENERAL: Alert, oriented, does not seem to be in any acute distress. VITAL SIGNS: Stable, currently afebrile. HEENT: Not icteric. NECK: Supple. CHEST: Clear. HEART: S1 and S2, no S3, S4 or murmur. ABDOMEN: Soft. Obese. EXTREMITIES: The skin on the upper extremities, there are several ecchymoses and bruising noted. She does have erythema and edema as well as bullous lesion noted on the left upper extremity, more so at the dorsal aspect of the hand, also on the forearm. LABORATORY DATA: Her white count is 13.97. Hemoglobin 12, hematocrit 34. Her sodium 134, potassium 4.3, creatinine 1.22, AST 84. IMPRESSION AND PLAN 1. Cellulitis of the left upper extremity, bullous lesion, several subcutaneous ecchymoses. The patient was recently in the hospital. Will put her on vancomycin for the time being, trough with the 4th dose. Wound care to see the patient. Will see how she is doing over the next 24 hours. May need hand surgery evaluation. 2. History of chronic obstructive pulmonary disease. 3. History of arthritis. 4. History of chronic pain. 5. History of chronic kidney disease. 6. Will follow. Job#: [id number] GH
[2018-05-03] MEDS ORDERED: HYDROCODONE/APAP 5MG-325MG TAB PO ONE (19:00)
[2018-05-03 20:45] VITALS: BP 137/81
[2018-05-03 21:00] VITALS: BP 137/81
[2018-05-03 21:30] VITALS: BP 137/81
[2018-05-04] VITALS: BP 145/66
[2018-05-04 04:47] LABS: BASOPHILS # (AUTO) 0.1 (0.0-0.1); BASOPHILS % 0.5 % (0.0-1.0); EOSINOPHILS # (AUTO) 0.3 (0.0-0.4); EOSINOPHILS % 2.5 % (0.0-6.0); HEMATOCRIT 28.9 % (34.2-44.1); HEMOGLOBIN 9.9 g/dL (12.0-16.0); LYMPHOCYTES # (AUTO) 3.6 (1.0-3.2); LYMPHOCYTES % 26.3 % (18.0-39.1); MEAN CORPUSCULAR HEMOGLOBIN 33.9 pg (28-32); MEAN CORPUSCULAR HGB CONC 34.3 g/dL (31-35); MONOCYTES # (AUTO) 2.2 (0.2-0.8); MONOCYTES % 15.9 % (4.4-11.3); NEUTROPHILS # (AUTO) 7.4 (2.1-6.9); NEUTROPHILS % 53.6 % (38.7-80.0); PLATELET COUNT 134 x10e3/uL (140-360); RED BLOOD COUNT 2.92 x10e6/uL (3.6-5.1)
[2018-05-04 05:26] LABS: ANION GAP 12.1 mmol/L (8-16); CALCIUM 8.5 mg/dL (8.4-10.2); CREATININE, SERUM 1.16 mg/dL (0.57-1.11); POTASSIUM 4.1 mmol/L (3.5-5.1)
[2018-05-04 07:00] LABS: EOSINOPHILS % (MANUAL) 2 % (0-7); LYMPHOCYTES % (MANUAL) 27 % (19-48); MONOCYTES % (MANUAL) 8 % (3.4-9.0); NEUTROPHILS % (MANUAL) 63 % (40-74)
[2018-05-04 07:01] LABS: ANISOCYTOSIS SLIGHT; HYPOCHROMASIA SLIGHT; POIKILOCYTOSIS SLIGHT; RBC MORPHOLOGY COMMENT ABNORMAL
[2018-05-04 07:02] LABS: PLATELET ESTIMATE SLIGHTLY DECREASED
[2018-05-04 07:03] LABS: PLATELET MORPHOLOGY COMMENT NORMAL; TARGET CELLS FEW
[2018-05-04 08:00] VITALS: BP 142/78
[2018-05-04] MEDS ORDERED: ALBUTEROL SULFATE HFA 8GM INHALATION AEROSOL INH PRN (10:00)
[2018-05-04] MEDS ORDERED: IBUPROFEN 600 MG TAB PO PRN (10:00)
[2018-05-04] MEDS ORDERED: LEVALBUTEROL TARTRATE IH SCH (10:00)
[2018-05-04] MEDS ORDERED: TIZANIDINE HCL 4 MG TAB PO PRN (10:00)
[2018-05-04] MEDS ORDERED: IBUPROFEN 400 MG TAB PO PRN (10:30)
[2018-05-04] MEDS ORDERED: LEVALBUTEROL 15 GM AERO IH PRN (10:45)
[2018-05-04] MEDS: HYDROCODONE/APAP 10MG-325MG TAB PO PRN (11:28)
[2018-05-04] MEDS: HYDROCHLOROTHIAZIDE 25 MG TAB PO SCH (11:38)
[2018-05-04] MEDS: AMLODIPINE BESYLATE 5 MG TAB PO SCH (11:38)
[2018-05-04] MEDS: FUROSEMIDE 40 MG TAB PO SCH ×2 (11:38→16:15)
[2018-05-04 12:00] VITALS: BP 158/72
[2018-05-04] MEDS: GABAPENTIN 300 MG CAP PO SCH ×2 (15:54→21:58)
[2018-05-04 16:00] VITALS: BP 126/56
[2018-05-04] MEDS: VANCOMYCIN 1GM/NS 250 ML 250 ML IV SCH (16:06)
[2018-05-04] MEDS: BUDESONIDE/FORMOTEROL 160/4.5MCG INHALER INH SCH (16:15)
[2018-05-04] MEDS: CALCIUM CARBONATE 500 MG CHEWABLE TABS PO SCH (16:15)
[2018-05-04] MEDS ORDERED: AZELASTINE HCL(OPTH) 6 ML BOTTLE OP SCH (17:00)
[2018-05-04] MEDS ORDERED: FUROSEMIDE 40 MG TAB PO SCH (17:00)
[2018-05-04 17:28] LABS: THYROID STIMULATING HORMONE 1.462 uIU/mL (0.350-4.940)
[2018-05-04] MEDS: TRAMADOL HCL 50 MG TAB PO PRN (17:33)
[2018-05-04 20:00] VITALS: BP 132/60
[2018-05-04 21:00] VITALS: BP 132/60
[2018-05-04] MEDS ORDERED: MELATONIN 3 MG TAB PO SCH (21:00)
[2018-05-04] MEDS: MELATONIN 5 MG TABLET PO SCH (21:58)
[2018-05-05] VITALS (8 sets, daily range): BP systolic 118–166; BP diastolic 56–78
[2018-05-05] MEDS: BUDESONIDE/FORMOTEROL 160/4.5MCG INHALER INH SCH ×2 (07:25→19:30)
[2018-05-05] MEDS: HYDROCODONE/APAP 10MG-325MG TAB PO PRN (08:58)
[2018-05-05] MEDS ORDERED: NON-FORMULARY MEDICATION (Omega-3/Dha/Epa/Fish Oil (Fish Oil Omega-3 Softgel) 1 TAB) PO SCH (09:00)
[2018-05-05] MEDS: CALCIUM CARBONATE 500 MG CHEWABLE TABS PO SCH ×2 (09:00→17:00)
[2018-05-05] MEDS ORDERED: POTASSIUM CHLORIDE 10 MEQ TABCR PO SCH (09:00)
[2018-05-05] MEDS: PANTOPRAZOLE SOD 40 MG TABEC PO SCH (09:00)
[2018-05-05] MEDS: MULTIVITAMINS/MINERALS TAB PO SCH (09:00)
[2018-05-05] MEDS: GABAPENTIN 300 MG CAP PO SCH ×3 (09:00→21:20)
[2018-05-05] MEDS: ASPIRIN 81 MG CHEW TAB PO SCH (09:00)
[2018-05-05] MEDS: PREDNISONE 5 MG/5 ML SOLN PO SCH (09:00)
[2018-05-05] MEDS ORDERED: PREDNISONE 5 MG TAB PO SCH (09:00)
[2018-05-05] MEDS: SPIRONOLACTONE 25 MG TAB PO SCH (09:00)
[2018-05-05] MEDS ORDERED: AMLODIPINE BESYLATE 5 MG TAB PO SCH (09:00)
[2018-05-05] MEDS: AMLODIPINE BESYLATE 5 MG TAB PO SCH (09:00)
[2018-05-05] MEDS: OMEGA 3 POLYUNSAT FATTY ACIDS 1000 MG SOFTGEL PO SCH (09:00)
[2018-05-05] MEDS ORDERED: NON-FORMULARY MEDICATION (Ranitidine Hcl 150 MG) PO SCH (09:00)
[2018-05-05] MEDS ORDERED: AMILORIDE PO SCH ×2 (09:00)
[2018-05-05] MEDS ORDERED: HYDROCHLOROTHIAZIDE 25 MG TAB PO SCH (09:00)
[2018-05-05] MEDS ORDERED: HYDROCHLOROTHIAZIDE PO SCH ×2 (09:00)
[2018-05-05] MEDS: ESTRADIOL 1 MG TAB PO SCH (09:00)
[2018-05-05] MEDS ORDERED: [UNRECOGNIZED DRUG - OTHER] PO SCH ×2 (09:00)
[2018-05-05] MEDS: FUROSEMIDE 40 MG TAB PO SCH ×2 (09:00→17:00)
[2018-05-05] MEDS: AZELASTINE HCL 137 MCG NASAL SPRAY NS SCH ×2 (09:00→17:00)
[2018-05-05] MEDS: HYDROCHLOROTHIAZIDE 25 MG TAB PO SCH (09:00)
--- NOTE | 2018-05-05 14:17 | Consultation ---
DATE OF CONSULTATION: INCOMPLETE REPORT Job#: [id number] EV
--- NOTE | 2018-05-05 14:40 | Consultation ---
DATE OF CONSULTATION: May 05, 2018 REFERRING PHYSICIAN: Dr. López. I would like to thank Dr. López for asking me to see Ms. Hidalgo in consultation. REASONS FOR CONSULTATION 1. Debilitation. 2. Arthritis. 3. Left upper extremity cellulitis. 4. History of COPD. HISTORY: This 72-year-old female with a history of arthritis, who is on prednisone 4 mg per day, came into the hospital because of increased swelling and bruising to the back. She spent some time in [place] and went home and then started developing more left upper extremity swelling and erythema. There were also some bluish lesions that showed up. The patient has been admitted to [facility] for continuation of care. She is being followed by Dr. Marshall for ID management as well as by Dr. Norton for internal medicine management and Dr. López as well. I am being asked to evaluate for rehab needs. PAST MEDICAL HISTORY 1. COPD. 2. CKD, stage 3. 3. Cellulitis to the extremities. 4. Multiple skin tears. 5. Osteoarthritis mainly affecting her major joints, but especially the right knee. SURGERIES: Noncontributory. SOCIAL HISTORY: She lives with her family in a 1-story home. Ambulatory with assistive device. HABITS: Nonsmoker and nondrinker. FAMILY HISTORY: Hypertension runs in the family. CONSTITUTIONAL REVIEW OF SYSTEMS MUSCULOSKELETAL: Has generalized arthritis. NEUROLOGIC: Denies. HEMATOLOGIC: Denies. EYES: Denies. EARS: Denies. NECK: Denies. OTHER: The rest of the review of systems is essentially negative except for the above findings. She does fatigue easily. She does have some issues with COPD as well as pain. PHYSICAL EXAMINATION GENERAL: The patient is awake, alert, pleasant, in no apparent distress. Oriented times 3. EYES: Gaze is conjugate. ORAL: Tongue is midline. NECK: Supple. HEART: Regular. LUNGS: Fair air entry. ABDOMEN: Nontender and nondistended. EXTREMITIES: Limited range of motion in the shoulders. Limited range of motion in the elbows as well as the ankles. Functional range of motion in the hips and knees. SENSORY: Denies any new onset of numbness or tingling in the hand, feet or face. MANUAL MUSCLE TESTING: Shoulder flexion and extension are 2/5 strength within achievable range of motion. Elbow flexion and extension and engine pilot are 3+/5 strength. In the lower extremities, hip and knee flexion is essentially 3+/5 to 4-/5 strength. Ankle dorsiflexion and plantarflexion are 3+/5 strength. IMPRESSION 1. Cellulitis of the left upper extremity. 2. Debilitation secondary to osteoarthritis. 3. Patient with history of chronic obstructive pulmonary disease. 4. History of chronic kidney disease. PLAN: Workup is in progress. Will determine next level of care, either LTAC or inpatient rehab depending on her diagnosis and needs. She prefers rehab as do I so long as she can benefit from a multidisciplinary rehab program. It just depends on her need for antibiotics and duration as well as her functional mobility. PT has been initiated. Unable to get OT started because there is no OT in the facility. PRECAUTIONS: Falls. Thank you once again for allowing me to participate in the care of this pleasant but unfortunate patient. Job#: [id number]
[2018-05-05] MEDS ORDERED: SODIUM CHLORIDE 0.9% 250ML 250 ML ONE (15:07)
[2018-05-05] MEDS: VANCOMYCIN 1GM/NS 250 ML 250 ML IV SCH (15:45)
[2018-05-05] MEDS: MELATONIN 5 MG TABLET PO SCH (21:20)
[2018-05-06] VITALS (7 sets, daily range): BP systolic 99–141; BP diastolic 53–85
[2018-05-06 05:01] LABS: ANION GAP 13.1 mmol/L (8-16); CALCIUM 8.4 mg/dL (8.4-10.2); CREATININE, SERUM 1.05 mg/dL (0.57-1.11); MAGNESIUM 1.7 MG/DL (1.3-2.1); POTASSIUM 3.1 mmol/L (3.5-5.1)
[2018-05-06] MEDS: BUDESONIDE/FORMOTEROL 160/4.5MCG INHALER INH SCH ×2 (07:00→19:35)
[2018-05-06] MEDS ORDERED: FUROSEMIDE INJ 10 MG/ML 4 ML VIAL IV SCH (08:00)
[2018-05-06] MEDS ORDERED: ALBUMIN 25% 12.5GM 0.25 GM/ML BTL IV ONE (08:00)
[2018-05-06] MEDS: HYDROCHLOROTHIAZIDE 25 MG TAB PO SCH (09:00)
[2018-05-06] MEDS: BALSAM PERU/CASTOR OIL 5 GM OINT...G. TP SCH (09:00)
[2018-05-06] MEDS: AZELASTINE HCL 137 MCG NASAL SPRAY NS SCH ×2 (09:00→17:00)
[2018-05-06] MEDS: COLLAGENASE 5 GM TUBE TOP SCH (09:00)
[2018-05-06] MEDS: CALCIUM CARBONATE 500 MG CHEWABLE TABS PO SCH ×2 (09:00→17:00)
[2018-05-06] MEDS ORDERED: POTASSIUM CHLORIDE 10 MEQ TABCR PO SCH (09:00)
[2018-05-06] MEDS: OMEGA 3 POLYUNSAT FATTY ACIDS 1000 MG SOFTGEL PO SCH (09:00)
[2018-05-06] MEDS: AMLODIPINE BESYLATE 5 MG TAB PO SCH (09:00)
[2018-05-06] MEDS: SPIRONOLACTONE 25 MG TAB PO SCH (09:00)
[2018-05-06] MEDS: ASPIRIN 81 MG CHEW TAB PO SCH (09:00)
[2018-05-06] MEDS: PANTOPRAZOLE SOD 40 MG TABEC PO SCH (09:00)
[2018-05-06] MEDS: ESTRADIOL 1 MG TAB PO SCH (09:00)
[2018-05-06] MEDS ORDERED: POTASSIUM CHLORIDE 20 MEQ TAB CR PO SCH (09:00)
[2018-05-06] MEDS: GABAPENTIN 300 MG CAP PO SCH ×3 (09:00→21:14)
[2018-05-06] MEDS: MULTIVITAMINS/MINERALS TAB PO SCH (09:00)
[2018-05-06] MEDS: PREDNISONE 5 MG/5 ML SOLN PO SCH (09:00)
[2018-05-06] MEDS ORDERED: LORAZEPAM 0.5 MG TAB PO PRN (09:45)
--- NOTE | 2018-05-06 10:20 | Consultation ---
DATE OF CONSULTATION: REASON FOR CONSULTATION: For treatment and evaluation of depression and anxiety. HISTORY OF PRESENT ILLNESS: The patient is a 72-year-old female who is admitted to [facility] because of left arm cellulitis. Psychiatric consult is called to evaluate the patient's depression and anxiety. Upon evaluation today, the patient is found to be lying on her bed. She is alert, awake and oriented to situation. She states "she is feeling very depressed" because of her medical health issues. The patient is stressed because she has been repeatedly hospitalized in the last month. During this assessment, she feels hopeless and helpless. She reports that she is able to sleep well, but her appetite is not good. She denies any hallucinations and/or suicidal ideations. PAST PSYCHIATRIC HISTORY: The patient stated that she had never been treated by a psychiatrist in the past, but she attempted suicide at least once in the past. She drinks alcohol every day and claims that she consumes 1 glass of wine. She also abuses marijuana on and off. FAMILY HISTORY: The patient stated that her son suffers from ADHD. MEDICAL HISTORY: The patient has a history of cellulitis. ALLERGIES: TAPE AND TETANUS VACCINE AND TOXOID. SOCIAL HISTORY: The patient lives with her . CURRENT LABS: WBC 13.71, hemoglobin 9.9, hematocrit 28.9, and platelets 134,000. Sodium 134, potassium 3.1, chloride 99, BUN 41, creatinine 1.05. CURRENT MEDICINES 1. Amlodipine. 2. Hydrochlorothiazide. 3. Prednisone. 4. Aldactone. 5. Gabapentin 300 mg t.i.d. 6. Aspirin. 7. Lasix. 8. Melatonin 10 mg at night. 9. Vancomycin. 10. Tramadol p.r.n. MENTAL STATUS EXAMINATION GENERAL: The patient is an elderly female who is currently dressed in her home clothes. She is lying on her bed. She is calm and cooperative. Her mood is depressed with tearful effect. She denies any suicidal or homicidal ideation at present. She denies any abnormal perceptions at present. No delusions are elicited. Her thought process is goal directed. Insight and judgment are fair. Her memory is grossly intact. DIAGNOSIS: [place] I: Major depressive disorder, single episode, moderate to severe. PLAN 1. Add Cymbalta 20 mg p.o. b.i.d. 2. Add Ativan 0.5 mg p.o. t.i.d. p.r.n. for anxiety. 3. Supportive therapy during her inpatient stay. Job#: [id number] RI
[2018-05-06] MEDS: VANCOMYCIN 1GM/NS 250 ML 250 ML IV SCH (15:39)
[2018-05-06] MEDS: FUROSEMIDE INJ 10 MG/ML 4 ML VIAL IV SCH (17:00)
[2018-05-06] MEDS: POTASSIUM CHLORIDE 20 MEQ TAB CR PO SCH (17:00)
[2018-05-06] MEDS: DULOXETINE HCL 20 MG DELAYED RELEASE PO SCH (17:00)
--- NOTE | 2018-05-06 17:01 | Progress Note ---
DATE: May 06, 2018 Mrs. Hidalgo is seen on rounds today. She is doing pretty well in no apparent distress at this time. She is following commands. She is sitting up eating. She is scheduled to go to [facility] for continuation of care and antibiotics. OBJECTIVE HEART: Regular. LUNGS: Fair air entry. ABDOMEN: Nontender, nondistended. NECK: No JVD. Clinically she is doing a little bit better. The patient has choice of LTAC versus rehab. Plan on discharging to LTAC. For right now, discussed with the patient and family and overall is doing well. Job#: [id number]
[2018-05-06] MEDS: HYDROCODONE/APAP 10MG-325MG TAB PO PRN (17:20)
[2018-05-06] MEDS ORDERED: HYDROMORPHONE 2MG/ML 2 MG/ML ML IV PRN (18:15)
[2018-05-06] MEDS ORDERED: ALBUMIN 25% 12.5GM 0.25 GM/ML BTL IV SCH (19:00)
[2018-05-06] MEDS: ALBUMIN 25% 12.5GM 0.25 GM/ML BTL IV SCH (19:10)
[2018-05-06] MEDS: MELATONIN 5 MG TABLET PO SCH (21:14)
[2018-05-07 00:36] VITALS: BP 118/87
[2018-05-07] MEDS: TRAMADOL HCL 50 MG TAB PO PRN (05:06)
[2018-05-07 05:23] VITALS: BP 130/67
[2018-05-07] MEDS: BUDESONIDE/FORMOTEROL 160/4.5MCG INHALER INH SCH (07:40)
[2018-05-07 08:00] VITALS: BP 133/74
[2018-05-07 08:15] VITALS: BP 130/67
[2018-05-07] MEDS: ESTRADIOL 1 MG TAB PO SCH (08:15)
[2018-05-07] MEDS: ASPIRIN 81 MG CHEW TAB PO SCH (08:15)
[2018-05-07] MEDS: POTASSIUM CHLORIDE 20 MEQ TAB CR PO SCH ×2 (08:15→17:00)
[2018-05-07] MEDS: AZELASTINE HCL 137 MCG NASAL SPRAY NS SCH ×2 (08:15→17:00)
[2018-05-07] MEDS: AMLODIPINE BESYLATE 5 MG TAB PO SCH (08:15)
[2018-05-07] MEDS: MULTIVITAMINS/MINERALS TAB PO SCH (08:15)
[2018-05-07] MEDS: OMEGA 3 POLYUNSAT FATTY ACIDS 1000 MG SOFTGEL PO SCH (08:15)
[2018-05-07] MEDS: DULOXETINE HCL 20 MG DELAYED RELEASE PO SCH ×2 (08:15→17:00)
[2018-05-07] MEDS: PANTOPRAZOLE SOD 40 MG TABEC PO SCH (08:15)
[2018-05-07] MEDS: GABAPENTIN 300 MG CAP PO SCH ×2 (08:15→15:17)
[2018-05-07] MEDS: HYDROCHLOROTHIAZIDE 25 MG TAB PO SCH (08:15)
[2018-05-07] MEDS: CALCIUM CARBONATE 500 MG CHEWABLE TABS PO SCH ×2 (08:15→17:00)
[2018-05-07] MEDS: FUROSEMIDE INJ 10 MG/ML 4 ML VIAL IV SCH ×2 (08:15→15:17)
[2018-05-07] MEDS: SPIRONOLACTONE 25 MG TAB PO SCH (08:15)
[2018-05-07] MEDS ORDERED: PREDNISONE 5 MG/5 ML SOLN PO SCH (09:00)
[2018-05-07] MEDS: ALBUMIN 25% 12.5GM 0.25 GM/ML BTL IV SCH ×2 (09:15→15:17)
[2018-05-07 12:00] VITALS: BP 105/52
[2018-05-07] MEDS: BALSAM PERU/CASTOR OIL 5 GM OINT...G. TP SCH (15:17)
[2018-05-07] MEDS: COLLAGENASE 5 GM TUBE TOP SCH (15:17)
[2018-05-07 16:00] VITALS: BP 101/67
[2018-05-07] MEDS: VANCOMYCIN 1GM/NS 250 ML 250 ML IV SCH (16:30)
== END 2018-05-07 19:04 | DRG 603 ==
LOC: ER 11:38 → ERHOLD 15:05 → MED/SURG2 21:03
DX: L03.114 Cellulitis of left upper limb (principal); E87.1 Hypo-osmolality and hyponatremia; F32.1 Major depressive disorder, single episode, moderate; I12.9 Hypertensive chronic kidney disease with stage 1 through stage 4 chronic kidney disease, or unspecified chronic kidney disease; N18.3 Chronic kidney disease, stage 3 (moderate); J44.9 Chronic obstructive pulmonary disease, unspecified; M19.90 Unspecified osteoarthritis, unspecified site; G89.29 Other chronic pain; S61.412A Laceration without foreign body of left hand, initial encounter; X58.XXXA Exposure to other specified factors, initial encounter; E87.6 Hypokalemia; R60.0 Localized edema
CPT/HCPCS: 36415; 80048; 80053; 83735; 84075; 84080; 84436; 84443; 84479; 85025; 85610; 85651; 85730; 86039; 86140; 86431; 94640; 99285; J1940; J3370; J7050